=== PATIENT | male | born 1960 | race African-American/Black ===

== ENCOUNTER 2025-02-14 15:06 | Emergency (ER) | payer BC, MEDICAID ==
[~2025-02-14] VITALS: Ht 175.3 cm; Wt 70.0 kg
[2025-02-14 15:07] VITALS: O2SAT 98
[2025-02-14 15:11] VITALS: BP 147/87; PULSE 70; RESP 18; TEMP 36.6; O2SAT 99
[2025-02-14] MEDS ORDERED: ACET-2708 MT (17:06)
== END 2025-02-14 18:11 | disposition home or self-care (01) ==
LOC: ER 15:06
DX: Z20.822 Contact with and (suspected) exposure to COVID-19 (principal); Z00.8 Encounter for other general examination; I10 Essential (primary) hypertension
CPT/HCPCS: 71045; 87426; 99284